=== PATIENT | female | born 1985 | race Hispanic/Latino ===

== ENCOUNTER 2017-11-16 13:04 | Emergency (ER) | payer BC ==
[2017-11-16] MEDS ORDERED: ZOFRAN IV ONE (15:16)
[2017-11-16] MEDS ORDERED: TYLENOL PO ONE (15:16)
--- NOTE | 2017-11-16 15:17 | Emergency Department Report ---
Blank Doc - Documentation Documentation: Patient is a 32-year-old female is presenting with headache and near- syncope nausea and vomiting. Patient is 18 weeks since she's had multiple days where she couldn't keep anything down and she's had to come into the hospital for fluids for this . Patient denies any fever cough congestion and dysuria, pain at this time. Patient states there is no vaginal bleeding. Patient be moved to a treatment room for IV fluids and nausea medicine and we will check electrolytes this patient states she has a history of renal issues and a low potassium.
--- NOTE | 2017-11-16 15:36 | Emergency Department Report ---
HPI - General Chief Complaint: Headache Time Seen by Provider: 11/16/17 15:03 - HPI HPI: Patient is a 32-year-old female is presenting with headache and near- syncope nausea and vomiting. Patient is 18 weeks since she's had multiple days where she couldn't keep anything down and she's had to come into the hospital for fluids for this . Patient denies any fever cough congestion and dysuria, pain at this time. Patient states there is no vaginal bleeding. Headache is 7 out of 10 and achy frontally. Denies any trauma. Denies any abdominal pain. She's had ultrasound in the past which shows IUP. Patient said that she is visiting from [place] and does not know when she is going back and will need a referral for [employer] [employer] [facility]. She reports taking vitamin. Denies any diarrhea. Pain is achy and no medication taken for pain. She says she drinks at least 3 L of water daily. ED Past Medical Hx - Past Medical History Previous Medical History?: No - Surgical History Past Surgical History?: No - Family History Family history: no significant - Social History Smoking Status: Never Smoker Substance Use Type: None - Medications Home Medications: Home Medications Medication Instructions Recorded Confirmed Last Taken Type Acetaminophen [Tylenol] 500 mg PO Q8HR PRN #12 tablet 11/16/17 Unknown Rx Nitrofurantoin Monohyd/M-Cryst 100 mg PO Q12H 7 Days #14 capsule 11/16/17 Unknown Rx [Macrobid 100 mg Capsule] Ondansetron [Zofran Odt] 4 mg PO Q8H PRN #12 tab.rapdis 11/16/17 Unknown Rx ED Review of Systems ROS: Stated complaint: HEADACHE AND PALPATIONS Other details as noted in HPI Comment: All other systems reviewed and negative Constitutional: no symptoms reported Eyes: denies: eye pain, eye discharge ENT: denies: ear pain, throat pain, congestion Respiratory: no symptoms reported Cardiovascular: denies: chest pain, palpitations, dyspnea on exertion, edema, syncope, paroxysmal nocturnal dyspnea Gastrointestinal: nausea, vomiting. denies: abdominal pain, diarrhea, constipation, hematemesis, melena, hematochezia Genitourinary: denies: urgency, dysuria, frequency, hematuria, discharge Musculoskeletal: denies: back pain, joint swelling, arthralgia, myalgia Skin: denies: rash Neurological: headache, other (dizziness). denies: numbness, paresthesias, confusion, abnormal gait Physical Exam - Physical Exam Vital Signs: Vital Signs 11/16/17 13:29 Temperature 98.7 F Pulse Rate 74 Respiratory 18 Rate Blood Pressure 124/68 O2 Sat by Pulse 97 Oximetry General: This is a 32-year-old female well-nourished well-developed in no acute distress Physical Exam: Head: Normocephalic, atraumatic, no abrasion, no bruising and no contusion. Eyes: Biateral pupils equal and reactive to light, bilateral EOM intact.. Bilateral conjunctival and sclera without injection, normal accommodation. No nystagmus Mouth: Mucosa dry, no pharyngeal exudate or erythema. No peritonsillar abscesses. Uvula is midline and oral airways patent. Ears: Bilateral TMs pearly villa Bilateral EAC without any redness swelling or drainage. No mastoid bone tenderness Nose: Bilateral nasal mucosa normal ,Maxillary and frontal sinuses non-tender to palpate. Neck: Supple, No Cervical adenopathy, full range of motion and no C-spine tenderness. No swelling or tracheal deviation normal reflexes Cardiovascular: S1, S2. Regular rate and rhythm. No murmur. Capillary refill is less then 3 seconds. heart tone at 156 bpm via handheld Doppler. Lungs: Clear to auscultate bilaterally. No rhonchi, wheezes or rales. No chest wall tenderness. No chest contusion. No bruising to chest. MSK: Strength 5/5 in all extremities. No joint deformity or crepitus. Normal inspection. Full range of motion to all extremities. No laceration, abrasion or ecchymotic area noted. Abdomen: Non-tender to palpate in all quadrants, no guarding or rebound tenderness, positive bowel sounds in all quadrants. No CVA tenderness. No hernia, bruit or mass. No rigidity or distention. Extremities: No clubbing, cyanosis or edema. +2 pulses. No neurovascular compromise Skin: Clean, dry and intact. No rash or lesions. Neurological: GCS at 15, Pt is alert and oriented 3 speech is clear . 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 Normal gait. Negative Romberg and no pronator drift. Normal Reflexes. No motor or sensory deficit Back: No vertebral tenderness, no paraspinal tenderness. Ambulates without any difficulties. Psych: Normal mood and behavior ED Course Vital Signs 11/16/17 13:29 Temperature 98.7 F Pulse Rate 74 Respiratory 18 Rate Blood Pressure 124/68 O2 Sat by Pulse 97 Oximetry - Reevaluation(s) Reevaluation #1: 11/16/17 17:40 Patient given D5 normal saline 1 L, Zofran 4 mg IV and Tylenol 650 mg by mouth in emergency room. She says she felt better. heart tone is 156 bpm. Patient is tolerated in by mouth fluids in emergency room without any nausea or vomiting. ED Medical Decision Making - Lab Data Result diagrams: 11/16/17 15:29 11/16/17 15:29 Lab Results 11/16/17 11/16/17 11/16/17 Range/Units 15:29 15:29 16:10 WBC 8.6 (4.5-11.0) K/mm3 RBC 3.81 (3.65-5.03) M/mm3 Hgb 11.8 (10.1-14.3) gm/dl Hct 34.2 (30.3-42.9) % MCV 90 (79-97) fl MCH 31 (28-32) pg MCHC 35 H (30-34) % RDW 13.6 (13.2-15.2) % Plt Count 196 (140-440) K/mm3 Lymph % (Auto) 25.8 (13.4-35.0) % [place] % (Auto) 5.1 (0.0-7.3) % Eos % (Auto) 1.0 (0.0-4.3) % Baso % (Auto) 0.4 (0.0-1.8) % Lymph # 2.2 (1.2-5.4) K/mm3 [place] # 0.4 (0.0-0.8) K/mm3 Eos # 0.1 (0.0-0.4) K/mm3 Baso # 0.0 (0.0-0.1) K/mm3 Seg Neutrophils % 67.7 (40.0-70.0) % Seg Neutrophils # 5.8 (1.8-7.7) K/mm3 Sodium 137 (137-145) mmol/L Potassium 3.8 (3.6-5.0) mmol/L Chloride 98.7 (98-107) mmol/L Carbon Dioxide 23 (22-30) mmol/L Anion Gap 19 mmol/L BUN 7 (7-17) mg/dL Creatinine 0.4 L (0.7-1.2) mg/dL Estimated GFR > 60 ml/min BUN/Creatinine Ratio 18 % Glucose 130 H (65-100) mg/dL Calcium 8.5 (8.4-10.2) mg/dL Urine Color Yellow (Yellow) Urine Turbidity Clear (Clear) Urine pH 6.0 (5.0-7.0) Ur Specific [place] 1.024 (1.003-1.030) Urine Protein <15 mg/dl (Negative) mg/dL Urine Glucose (UA) Neg (Negative) mg/dL Urine Ketones 20 (Negative) mg/dL Urine Blood Neg (Negative) Urine Nitrite Neg (Negative) Urine Bilirubin Neg (Negative) Urine Urobilinogen < 2.0 (<2.0) mg/dL Ur Leukocyte Esterase Sm (Negative) Urine WBC (Auto) 5.0 (0.0-6.0) /HPF Urine RBC (Auto) 3.0 (0.0-6.0) /HPF U Epithel Cells (Auto) 3.0 (0-13.0) /HPF Urine Mucus Few /HPF Urine culture pending - Medical Decision Making ED course: This is a 32-year-old female here complaining of dizziness, nausea and vomiting and that she is 18 weeks . She has no complaints of abdominal pain, vaginal bleeding or discharge or no urinary symptoms complained. No complaints of back pain. Patient CBC is stable, chemistry is stable and urinalysis revealed that she has positive ketone and positive leukocyte Estrace and urine. Urine culture sent. heart tones by portable Doppler is 156 beats per minute. Patient received D5 normal saline 1 L, Zofran 4 mg IV and Tylenol 650 mg by mouth and she voiced relief of her nausea and headache. I discussed her that I will refer her to [facility] for family practice and [employer] [facility] and also to Dr. Eli George for OB/ MANAGER [facility]. I discussed that she should call both places tomorrow and 4 for confusion her first then she needs to schedule an appointment for follow-up visit. Discharge home with prescription for Zofran and Macrobid. She voiced understanding of discharge diagnosis, laboratory results and need for follow-up. Critical care attestation.: If time is entered above; I have spent that time in minutes in the direct care of this critically ill patient, excluding procedure time. ED Disposition Clinical Impression: Dehydration during , Acute cystitis without hematuria, Ketonuria, Dizzinesses Headache Qualifiers: Headache type: unspecified Headache chronicity pattern: acute headache Intractability: not intractable Qualified Code(s): R51 - Headache Nausea and vomiting Qualifiers: Vomiting type: unspecified Vomiting Intractability: non-intractable Qualified Code(s): R11.2 - Nausea with vomiting, unspecified Disposition: DC-01 TO HOME OR SELFCARE Is pt being admited?: No Does the pt Need Aspirin: No Condition: Stable Instructions: Dehydration (ED), Urinary Tract Infection in Women (ED), Acute Headache (ED), Dizziness (ED), Acute Nausea and Vomiting (ED) Additional Instructions: Please follow up with [employer] [facility] as instructed. See discharge instruction paperwork for referral Take Zofran for nausea Continue to take vitamin Take Macrobid for urinary tract infection Continue to drink plenty of fluids Take Tylenol for headache as prescribed Prescriptions: Acetaminophen [Tylenol] 500 mg PO Q8HR PRN #12 tablet PRN Reason: Headache Nitrofurantoin Monohyd/M-Cryst [Macrobid 100 mg Capsule] 100 mg PO Q12H 7 Days # 14 capsule Ondansetron [Zofran Odt] 4 mg PO Q8H PRN #12 tab.rapdis PRN Reason: Nausea And Vomiting Referrals: LUCY SALEH [Other] - 11/18/17 [facility] [Outside] - 11/18/17 ESTHER GEORGE MD [Staff Physician] - 11/18/17 Forms: Accompanied Note
[2017-11-16 15:41] LABS: Basophils % (Auto) 0.4 % (0.0-1.8); Eosinophils # (Auto) 0.1 K/mm3 (0.0-0.4); Hematocrit 34.2 % (30.3-42.9); Hemoglobin 11.8 gm/dl (10.1-14.3); Lymphocytes # (Auto) 2.2 K/mm3 (1.2-5.4); Lymphocytes % (Auto) 25.8 % (13.4-35.0); Mean Corpuscular HGB Conc 35 % (30-34); Mean Corpuscular Hemoglobin 31 pg (28-32); Mean Corpuscular Volume 90 fl (79-97); Monocytes # (Auto) 0.4 K/mm3 (0.0-0.8); Monocytes % (Auto) 5.1 % (0.0-7.3); Platelet Count 196 K/mm3 (140-440); Red Blood Count 3.81 M/mm3 (3.65-5.03); Red Cell Distribution Width 13.6 % (13.2-15.2)
[2017-11-16] MEDS ORDERED: D5NS 1,000 ML IV SCH (16:00)
[2017-11-16 16:01] LABS: BUN/Creatinine Ratio 18; Blood Urea Nitrogen 7 mg/dL (7-17); Calcium 8.5 mg/dL (8.4-10.2); Hemolysis Index 5
[2017-11-16 16:31] LABS: Bilirubin,Urine NEG (Negative); Blood,Urine NEG (Negative); Color,Urine Yellow (Yellow); Mucus,Urine FEW /HPF; Protein,Urine <15 mg/dL mg/dL (Negative); Urobilinogen,Urine < 2.0 mg/dL (<2.0)
[2017-11-16 18:17] VITALS: BP 118/72
== END 2017-11-16 18:28 | disposition home or self-care (01) ==
LOC: ED 13:04
DX: O99.282 Endocrine, nutritional and metabolic diseases complicating pregnancy, second trimester (principal); E86.0 Dehydration; O23.12 Infections of bladder in pregnancy, second trimester; Z3A.18 18 weeks gestation of pregnancy; Z88.8 Allergy status to other drugs, medicaments and biological substances
CPT/HCPCS: 36415; 80048; 81001; 85025; 87086; 93005; 93010; 96361; 96374; 99283; J2405; J7042

== ENCOUNTER 2017-12-09 21:09 | Outpatient (CLI) | payer BC ==
[2017-12-09] MEDS ORDERED: LACTATED RINGERS 500 ML IV ONE (21:49)
[2017-12-09 23:31] LABS: Bacteria,Urine 1+ /HPF (Negative); Bilirubin,Urine NEG (Negative); Blood,Urine NEG (Negative); Color,Urine Yellow (Yellow); Protein,Urine <15 mg/dL mg/dL (Negative)
[2017-12-10] MEDS ORDERED: PEPCID IV ONE (02:19)
[2017-12-10] MEDS ORDERED: ANCEF/STERILE WATER 2 GM/20 ML 2 GM/20 ML SYRINGE IV ONE (02:19)
[2017-12-10] MEDS ORDERED: REGLAN ONE (02:19)
[2017-12-10] MEDS ORDERED: BICITRA ONE (02:19)
[2017-12-10] MEDS ORDERED: PITOCin/NS 20 UNIT/1000ML DRIP 20,000 MILLIUNITS/1,000 ML BAG IV ONE (02:56)
== END 2017-12-09 23:35 | disposition home or self-care (01) ==
LOC: TRG 21:09
PROVIDERS: ATTEND Obstetrics & Gynecology Gynecology
DX: O47.02 False labor before 37 completed weeks of gestation, second trimester (principal); Z3A.21 21 weeks gestation of pregnancy; Z87.891 Personal history of nicotine dependence
CPT/HCPCS: 59025; 81001; J7120; J0690; J2590; J2765

== ENCOUNTER 2018-03-05 14:34 | Outpatient (CLI) | payer OTHER ==
[2018-03-05] MEDS ORDERED: LACTATED RINGERS 500 ML IV ONE (14:56)
[2018-03-05 15:28] LABS: Bilirubin,Urine NEG (Negative); Blood,Urine NEG (Negative); Color,Urine Yellow (Yellow); Mucus,Urine FEW /HPF
[2018-03-05 16:27] LABS: Hematocrit 29.9 % (30.3-42.9); Hemoglobin 10.5 gm/dl (10.1-14.3); Mean Corpuscular HGB Conc 35 % (30-34); Mean Corpuscular Hemoglobin 32 pg (28-32); Mean Corpuscular Volume 91 fl (79-97); Platelet Count 162 K/mm3 (140-440); Red Blood Count 3.28 M/mm3 (3.65-5.03); Red Cell Distribution Width 13.1 % (13.2-15.2)
[2018-03-05 16:55] LABS: Alanine Aminotransferase 9 units/L (7-56)
[2018-03-05] MEDS ORDERED: TYLENOL PO ONE (17:00)
[2018-03-05 18:12] VITALS: BP 109/67
== END 2018-03-05 18:20 | disposition home or self-care (01) ==
LOC: TRG 14:34
PROVIDERS: ATTEND Obstetrics & Gynecology
DX: O47.03 False labor before 37 completed weeks of gestation, third trimester (principal); O99.333 Smoking (tobacco) complicating pregnancy, third trimester; Z3A.34 34 weeks gestation of pregnancy; Z88.5 Allergy status to narcotic agent; Z88.1 Allergy status to other antibiotic agents
CPT/HCPCS: 36415; 59025; 81001; 82565; 83615; 84450; 84460; 85027; 96360; J7120

== ENCOUNTER 2018-03-17 17:07 | Outpatient (CLI) | payer OTHER ==
[2018-03-17] MEDS ORDERED: LACTATED RINGERS 1,000 ML IV ONE (17:29)
[2018-03-17 17:41] VITALS: BP 129/80
[2018-03-17 18:01] LABS: Bilirubin,Urine NEG (Negative); Blood,Urine NEG (Negative); Color,Urine Yellow (Yellow); Mucus,Urine FEW /HPF; Protein,Urine <15 mg/dL mg/dL (Negative); Urobilinogen,Urine < 2.0 mg/dL (<2.0)
[2018-03-17] MEDS ORDERED: VISTARIL PO ONE (19:25)
== END 2018-03-17 20:00 | disposition home or self-care (01) ==
LOC: TRG 17:07
PROVIDERS: ATTEND Obstetrics & Gynecology
DX: O47.03 False labor before 37 completed weeks of gestation, third trimester (principal); Z3A.35 35 weeks gestation of pregnancy; Z88.6 Allergy status to analgesic agent
CPT/HCPCS: 81001; J7120; Q0177